=== PATIENT | female | born 1960 | race Caucasian/White ===

== ENCOUNTER → 2020-11-29 | Day surgery (SDC) | payer OTHER ==
[~2020-11-29] MED LIST: ALORA1 EAC1 TD; ARTIFICIAL TEA1 EACH OP; CALCIUM ACETATE1 GM PO; CARAFATE1 GM PO; CLIMARA1 EAC1 TD; FLONASE 0.05% N16 GM; IBUPROFEN400 MG PO; MELADOX3 MG PO; MUCINEX600 MG PO; NAPROXEN250 MG PO; NEXIUM40 MG PO; OMEPRAZOLE20 M1 PO; PROBIOTIC1 EAC1 PO; TYLENOL SINUS1 EAC3 PO; VITAMIN B12-FO1 EACH PO; VITAMIN D1000 UNIT PO; ZANTAC150 MG PO
== END | disposition home or self-care (01) ==
LOC: OR 09:03
DX: K22.2 Esophageal obstruction (principal); K21.00 Gastro-esophageal reflux disease with esophagitis, without bleeding; K29.50 Unspecified chronic gastritis without bleeding; K31.9 Disease of stomach and duodenum, unspecified; K44.9 Diaphragmatic hernia without obstruction or gangrene; Z88.5 Allergy status to narcotic agent; Z79.899 Other long term (current) drug therapy
CPT/HCPCS: J2704; J7040

== ENCOUNTER → 2020-12-26 | Outpatient (CLI) | payer OTHER | LOC: HEART 5 11:00 | DX: R07.9 Chest pain, unspecified (principal); R00.2 Palpitations ==

== ENCOUNTER → 2021-06-26 | Outpatient (CLI) | payer OTHER | LOC: RAD 09:25 | DX: K44.9 Diaphragmatic hernia without obstruction or gangrene (principal); K21.9 Gastro-esophageal reflux disease without esophagitis; K22.8 Other specified diseases of esophagus; R93.3 Abnormal findings on diagnostic imaging of other parts of digestive tract | CPT/HCPCS: 74220 ==

== ENCOUNTER → 2021-06-27 | Outpatient (CLI) | payer SELFPAY | LOC: RAD 17:00 | DX: M79.671 Pain in right foot (principal); M25.571 Pain in right ankle and joints of right foot; M19.071 Primary osteoarthritis, right ankle and foot | CPT/HCPCS: 73600; 73620 ==

== ENCOUNTER → 2021-07-21 | Outpatient (CLI) | payer OTHER | LOC: KOH-I 08:58 | DX: K82.4 Cholesterolosis of gallbladder (principal) | CPT/HCPCS: 76700 ==

== ENCOUNTER → 2022-05-29 | Outpatient (CLI) | payer OTHER | LOC: EXRD 09:13 | DX: K82.4 Cholesterolosis of gallbladder (principal) | CPT/HCPCS: 76705 ==